=== PATIENT | male | born 1975 | race Caucasian/White ===

== ENCOUNTER 2025-03-27 17:44 | Emergency (ER) | payer SELFPAY ==
[2025-03-27] VITALS (7 sets, daily range): BP systolic 130–141; BP diastolic 82–86; PULSE 90–117; RESP 18–19; TEMP 37.2–39.1; O2SAT 96–100; BMI 19.7
--- NOTE | 2025-03-27 18:04 | ED.RN ---
PT SEPSIS ALERT IS ACTIVE D/T FEVER/CHILLS.
--- NOTE | 2025-03-27 18:29 | EKG12_ITS ---
Test Reason : DYSRHYTHMIA Blood Pressure : */* mmHG Vent. Rate : 98 BPM Atrial Rate : 98 BPM P-R Int : 132 ms QRS Dur : 88 ms QT Int : 334 ms P-R-T Axes : 76 64 69 degrees QTcB Int : 426 ms Normal sinus rhythm Normal ECG Confirmed by DUANE FERNANDEZ ([id number]), brands editor EVERARDO VINSON ([id number]) on 03/28/2025 1:52:07 PM Referred By: Confirmed By: DUANE FERNANDEZ
--- NOTE | 2025-03-27 18:40 | RAD_ITS ---
PROCEDURE: CHEST PA AND LATERAL 03/27/2025 REASON FOR EXAM: FEVER, HYPERGLYCEMIA TECHNIQUE: CHEST PA AND LATERAL FINDINGS: The heart is normal in size. The lungs are clear. No acute osseous abnormalities. RAD/Chest PA and Lateral IMPRESSION: NO ACUTE FINDINGS. Reading Location: [id number]
[2025-03-27] MEDS: 0.9% Normal Saline (1000mL) 1,000 ML 999 ML IV ×3 (18:45→20:45)
[2025-03-27] MEDS: Ketorolac 30 MG/ML Syringe IV (18:45)
[2025-03-27 18:53] LABS: Hematocrit 39.8 % (40-54); Hemoglobin 14.4 g/dL (13.0-16.5); Immature Granulocytes Count 0.050 X10^3/uL (0.0-0.0); Mean Corp Hgb Conc 36.2 g/dL (32-36); Mean Corpuscular Volume 81.4 fL (80-94); Mean Platelet Vol. 9.4 fl (6.2-12.0); NRBC Flagged by Analyzer 0 % (0-5); Platelet Count 333 K/mm3 (150-450); RBC Distribution Width CV 11.2 % (11.6-14.6); RBC Distribution Width SD 32.9 fl (35.1-43.9); Red Blood Count 4.89 M/mm3 (4.6-6.2); White Blood Count 13.9 K/mm3 (4.4-11.0)
--- NOTE | 2025-03-27 18:55 | EX.ED.DYSGE1 ---
HPI History of Present Illness Chief Complaint: Hyperglycemia Narrative Narrative: Patient is a 41-year-old male with a past medical history of high blood glucose who presents to the emergency department chief complaint of not feeling well. States that starting yesterday he was not feeling well overall went to his doctor and they noted that the glucometer was reading high and cannot report the glucose therefore they sent him here to be further evaluated. Patient denies any sick contacts. He states that he is not any medications for his diabetes. PFSH PFSH Home Medications ?Medication ?Instructions ?Recorded ?Last Taken ?Type metformin 500 mg tablet 500 mg PO DAILY #30 tabs 03/27/25 Unknown Rx Allergy/AdvReac Type Severity Reaction Status Date / Time acetaminophen (From Tylenol) Allergy Rash Verified 03/27/25 17:50 Surgical History Hx of appendectomy Social History Smoking Status: Current every day smoker tobacco type: pipe ROS ROS ED ROS Narrative Constitutional: Denies headache, lightness, dizziness, fevers, chills Eyes: Denies double vision Cardiovascular: Denies chest pain Respiratory: Denies shortness of breath Abdomen: Denies nausea vomit diarrhea : Denies any urinary symptoms Neurological: Denies numbness, weakness, tingling Musculoskeletal: Denies back pain Skin: Denies any rashes or lesions EXAM Physical Exam Narrative Exam Narrative: General: Patient was lying in bed rest comfortably did not appear to be acute distress Head: Atraumatic, normocephalic Eyes: PERRL bilaterally, EOMI bilateral, no conjunctival injection noted Neck: Soft, supple, trachea midline Cardiovascular: Patient tachycardic with a regular rhythm Respiratory: Clear to auscultation bilaterally Abdomen: Soft, nondistended, no tenderness palpation Extremities: +5/5 strength noted in the bilateral upper and lower extremity, radial pulses +2/4 and about extremities, no pedal edema exam Neurological: Patient following commands and that he was at [facility] use 2024 Skin: Warm, dry, tact no rashes or lesions noted Const Vital Signs: 03/27/25 17:46 03/27/25 18:00 03/27/25 18:21 Temperature 102.4 F H 102.4 F H Temperature Source Oral Oral Pulse Rate 117 H 117 H Respiratory Rate 19 H 19 H Respiratory Effort Normal Non-Labored Respiratory Pattern Normal Blood Pressure 130/82 H 130/82 H Blood Pressure Mean 98 98 Pulse Ox 99 99 Oxygen Delivery Method Room Air Room Air 03/27/25 18:37 03/27/25 18:50 03/27/25 19:00 Temperature 102.4 F H Temperature Source Oral Pulse Rate 102 H 95 Respiratory Rate 18 18 Respiratory Effort Respiratory Pattern Blood Pressure 140/86 H 141/85 H Blood Pressure Mean 104 103 Pulse Ox 96 100 99 Oxygen Delivery Method Room Air Room Air Room Air 03/27/25 20:00 Temperature 99.2 F H Temperature Source Oral Pulse Rate 90 Respiratory Rate 18 Respiratory Effort Respiratory Pattern Blood Pressure 135/85 H Blood Pressure Mean 101 Pulse Ox 99 Oxygen Delivery Method Room Air MDM MDM MDM Narrative Medical decision making narrative: Patient is a 41-year-old male who presented to the emergency department the chief complaint of hyperglycemia. On the differential diagnosis includes but not limited to hyperglycemia, DKA, HHS, paraspinal infection secondary viral etiology, UTI, pneumonia. Once workup is obtained reviewed he will be reevaluated. Patient be given 30 cc/kg bolus of IV fluids which was ordered at 1830. Patient's CBC reviewed showed a mild leukocytosis of 13,000, hemoglobin stable at 14.4, platelet count was noted be 333. Patient's INR normal 1.1, PT of 14.1. Patient's venous blood gas showed a pH 7.45, sodium was mildly low at 127 which could be pseudohyponatremia secondary to his hyperglycemia. Patient anion gap normal at 14, AST and ALT are 2022 respectively. Patient's TSH normal at 0.96, free T4 and T3 normal at 1.10 and 1.2 respectively. Patient urinalysis showed thousand glucose in the urine, 50 ketones negative nitrates 25 leukocyte esterase 5 to 10 white cells with no bacteria noted. Patient was given 10 unit subcutaneous insulin repeat glucose was noted be 317. Patient's chest x-ray reviewed by myself by radiology showed no acute cardiopulmonary processes. Patient beta-hydroxybutyrate normal at 0.3. Lactic acid normal at 1.6. On reevaluation the patient he is feeling better he would like to go home at this point time. Patient will be started on metformin and was advised to follow-up with his doctor in outpatient setting. He is advised to return with worsening symptoms or concerns. He is advised to use ibuprofen, Aleve, Advil etc. for his fevers. He is agreeable this plan all course concerns answered he is discharged home in stable condition Lab Data Labs: Laboratory Results - last 24 hr 03/27/25 03/27/25 03/27/25 17:54 18:23 18:53 WBC 13.9 H RBC 4.89 Hgb 14.4 Hct 39.8 L MCV 81.4 MCH 29.4 MCHC 36.2 H RDW Std Deviation 32.9 L RDW Coeff of Axel 11.2 L Plt Count 333 MPV 9.4 Immature Gran % (Auto) 0.400 Neut % (Auto) 78.2 H Lymph % (Auto) 16.6 L Saunders % (Auto) 4.5 Eos % (Auto) 0.1 Baso % (Auto) 0.2 Absolute Neuts (auto) 10.9 H Absolute Lymphs (auto) 2.31 Nucleated RBC % 0 PT 14.1 INR 1.1 APTT 23.7 L Sodium 127 L Potassium 4.5 Chloride 90 L Carbon Dioxide 22.5 Anion Gap 14 BUN 17 Creatinine 0.89 Estim Creat Clear Calc 86.94 Est GFR (MDRD) Non-Af 106 BUN/Creatinine Ratio 19.1 Glucose 356 H Lactic Acid 1.6 Calcium 9.5 Total Bilirubin 0.74 AST 20 ALT 23 Alkaline Phosphatase 69 Total Protein 7.1 Albumin 4.0 Globulin 3.2 Albumin/Globulin Ratio 1.2 b-Hydroxybutyric mmol/L 0.3 TSH 0.968 Free T4 1.10 Free T3 pg/dL 1.2 L Urine Color Urine Clarity Urine pH Ur Specific Keno Urine Protein Urine Glucose (UA) Urine Ketones Urine Occult Blood Urine Nitrite Urine Bilirubin Urine Urobilinogen Ur Leukocyte Esterase Urine RBC Urine WBC Ur Squamous Epith Cells Urine Bacteria Urine Mucus POC Glucose 344 H 03/27/25 03/27/25 20:00 20:13 WBC RBC Hgb Hct MCV MCH MCHC RDW Std Deviation RDW Coeff of Axel Plt Count MPV Immature Gran % (Auto) Neut % (Auto) Lymph % (Auto) Saunders % (Auto) Eos % (Auto) Baso % (Auto) Absolute Neuts (auto) Absolute Lymphs (auto) Nucleated RBC % PT INR APTT Sodium Potassium Chloride Carbon Dioxide Anion Gap BUN Creatinine Estim Creat Clear Calc Est GFR (MDRD) Non-Af BUN/Creatinine Ratio Glucose Lactic Acid Calcium Total Bilirubin AST ALT Alkaline Phosphatase Total Protein Albumin Globulin Albumin/Globulin Ratio b-Hydroxybutyric mmol/L TSH Free T4 Free T3 pg/dL Urine Color Yellow Urine Clarity Sl. Cloudy Urine pH 6.0 Ur Specific Keno 1.020 Urine Protein 30 H Urine Glucose (UA) 1000 H Urine Ketones 50 H Urine Occult Blood 10 H Urine Nitrite Negative Urine Bilirubin Negative Urine Urobilinogen Normal Ur Leukocyte Esterase 25 H Urine RBC 0-5 SEEN Urine WBC 5-10 SEEN Ur Squamous Epith Cells 5-10 SEEN Urine Bacteria 0 SEEN Urine Mucus 2+ POC Glucose 317 H ABG Data ABG results: ABG 03/27/25 19:32 Specimen Type [place] Sample Site Not entered VBG pH 7.45 H VBG pO2 37 VBG HCO3 25 VBG Total CO2 26 VBG O2 Sat (Calc) 75 H VBG Base Excess 1 POC Mix VBG pCO2 Pt Tmp 36.1 L O2 Delivery Device Room Air Radiography Diagnostic Testing: Clinical Impression(s) from Imaging Studies Chest X-Ray 03/27/25 18:40 IMPRESSION: NO ACUTE FINDINGS. Reading Location: [facility] Discharge Plan Triage Chief Complaint: Hyperglycemia ED Provider: Kevin Solomon Dx/Rx/DC Orders Clinical Impression: Hyperglycemia, Viral upper respiratory infection, Fever Prescriptions: New metformin 500 mg tablet 500 mg PO DAILY Qty: 30 0RF Primary Care Provider: Emigdio Acuna Referrals: Emigdio Acuna, [Primary Care Provider] - Activity Restrictions/Additional Instructions: Take the metformin as prescribed. Follow-up your doctor in the outpatient setting. Return with worsening symptoms or any other concerns. You likely have a viral illness causing your symptoms. Use Advil, Aleve, ibuprofen etc. for fever control and bodyaches. Print Language: [place] Citizen Disposition Disposition: Home, Self Care
[2025-03-27 19:02] LABS: Prothrombin Time (Protime)PT. 14.1 SECONDS (11.7-14.9)
[2025-03-27 19:03] LABS: Partial Thromboplast Time 23.7 Seconds (24.1-36.2)
[2025-03-27 19:31] LABS: AST(SGOT) 20 U/L (<=37); Alanine Aminotransfer ALT/SGPT 23 U/L (<=46); Albumin, Serum 4.0 g/dL (3.5-5.0); Alkaline Phosphatase 69 U/L (40-129); Anion Gap 14 (5-15); BETA-HYDROXYBUTYRATE 0.3 mmol/L (0.0-0.3); BUN 17 mg/dL (4-19); BUN/Creat Ratio 19.1 RATIO (10-20); Calcium,Total 9.5 mg/dL (7.6-11.0); Carbon Dioxide 22.5 mmol/L (21.0-32.0); Chloride 90 mmol/L (98-108); Estimated Creatinine Clearance 86.94 ml/min (50-250); Free T3 1.2 pg/mL (2.18-3.98); Globulin 3.2 g/dL (2.2-4.2); Glucose 356 mg/dL (70-99); Potassium 4.5 mmol/L (3.3-5.1)
[2025-03-27 19:36] LABS: SITE Not entered; VBG BASE EXCESS 1 mmol/L (-1.0-3.5); VBG PO2 37 mmHg (25-40); VBG SO2 75 % (50-70); VBG TCO2 26 mmol/L (23-33)
[2025-03-27 20:26] LABS: Color, Urine Yellow (Yellow); Glucose, Dipstick 1000 mg/dl (Normal); Ketone-Dipstick 50 mg/dl (Negative); Leukocyte Esterase-Dipstick 25 /ul (Negative); Nitrite-Dipstick Negative (Negative); Occult Blood-Urine 10 /ul (Negative); Protein-Dipstick 30 mg/dl (Negative); Specific Gravity, Urine 1.020 (1.002-1.030); Urine Bilirubin Dipstick Negative (Negative)
[2025-03-27 20:40] LABS: Mucous, Urine 2+ /hpf (<or=2+); Red Blood Cells-Urine 0-5 SEEN /hpf (0-5); Squamous Epithelial Cells - UA 5-10 SEEN /hpf (0-5)
== END 2025-03-27 21:20 | disposition home or self-care (01) ==
PROVIDERS: Emergency Provider Emergency Medicine; PCP Family Medicine; Visit Provider Emergency Medicine
DX: E11.65 Type 2 diabetes mellitus with hyperglycemia (principal); J06.9 Acute upper respiratory infection, unspecified; Z79.84 Long term (current) use of oral hypoglycemic drugs; F17.290 Nicotine dependence, other tobacco product, uncomplicated; Z90.49 Acquired absence of other specified parts of digestive tract; R50.9 Fever, unspecified
CPT/HCPCS: 71046; 80053; 81001; 82010; 82803; 82962; 83605; 84439; 84443; 84481; 85025; 85610; 85730; 87040; 87086; 87088; 87631; 93005; 96361; 96372; 96374; 99284; A4216